=== PATIENT | male | born 1940 | race Caucasian/White ===

== ENCOUNTER 2018-09-12 14:29 | Emergency (ER) | payer MEDICARE, OTHER ==
[2018-09-12] MEDS ORDERED: LIDOCAINE 5% (700 MG) TRANSDERMAL ADH..PATCH TP ONE (15:25)
[2018-09-12] MEDS ORDERED: DEXAMETHASONE SOD PHOS INJ 10 MG/1 ML VIAL IM ONE (15:25)
[2018-09-12] MEDS ORDERED: KETOROLAC TROMETHAMINE 60 MG/2 ML SDV IM ONE (15:25)
--- NOTE | 2018-09-12 15:29 | ER Document Report ---
HPI - HPI Time Seen by Provider: 09/12/18 15:02 Pain Level: 5 Notes: Patient is a 78-year-old male with complaint of low back pain on the left side that extends down into the left hip. He states this is been ongoing for approximately 5 days. He states he sees an orthopedist for this. He states he is visiting the area as he has a grandchild being born and is having an acute flareup of his usual chronic pain. Patient denies any bowel or bladder incontinence, denies any saddle anesthesia, fevers or any other recent illness. Past Medical History - General Information source: Patient - Social History Smoking Status: Never Smoker Frequency of alcohol use: None Drug Abuse: None Family History: Reviewed & Not Pertinent - Medical History Medical History: Negative Surgical Hx: Negative - Immunizations Immunizations up to date: Yes Vertical Provider Document - CONSTITUTIONAL Notes: PHYSICAL EXAMINATION: GENERAL: Well-appearing, well-nourished and in no acute distress. HEAD: Atraumatic, normocephalic. EYES: Pupils equal round extraocular movements intact, conjunctiva are normal. ENT: Nares patent NECK: Normal range of motion LUNGS: No respiratory distress Musculoskeletal: Normal range of motion, tenderness to palpation to lumbar paraspinous muscles. No vertebral tenderness, step-off or deformity. NEUROLOGICAL: Normal speech, normal gait. PSYCH: Normal mood, normal affect. SKIN: Warm, Dry, normal turgor, no rashes or lesions noted. - INFECTION CONTROL TRAVEL OUTSIDE OF THE [place] IN LAST 30 DAYS: No Course - Re-evaluation Re-evalutation: Patient much improved after administration of medications here in the emergency department patient has no red flag symptoms such as bowel or bladder incontinence, urinary retention or saddle anesthesia. Patient will be a short course of pain medication. Patient given ED return precautions. - Vital Signs Vital signs: Temp Pulse Resp BP Pulse Ox 97.5 F 135 H 16 147/73 H 97 09/12/18 14:36 09/12/18 14:36 09/12/18 14:36 09/12/18 14:36 09/12/18 14:36 Discharge - Discharge Clinical Impression: Back pain Qualifiers: Back pain location: low back pain Chronicity: unspecified Back pain laterality: left Sciatica presence: with sciatica Sciatica laterality: sciatica of left side Qualified Code(s): M54.42 - Lumbago with sciatica, left side Condition: Stable Disposition: HOME, SELF-CARE Additional Instructions: You have been seen in the Emergency Department (ED) today for back pain. Your workup and exam have not shown any acute abnormalities and you are likely suffering from muscle strain or possible problems with your discs, but there is no treatment that will fix your symptoms at this time. Please take the hydrocodone that has been prescribed as directed. You should also purchase a local lidocaine cream such as "aspercreme with lidocaine" and use per bottle instructions to the affected area. Apply heat to the area as often as you are able. Continue to keep active and avoid prolonged periods of bed rest. Please follow up with your doctor as soon as possible regarding today's ED visit and your back pain. Return to the ED for worsening back pain, fever, weakness or numbness of either leg, or if you develop either (1) an inability to urinate or have bowel movements, or (2) loss of your ability to control your bathroom functions (if you start having "accidents"), or if you develop other new symptoms that concern you.concern you. Prescriptions: Hydrocodone Bit/Acetaminophen [Hydrocodon-Acetaminophen 5-325] 1 each PO Q4H #12 tablet
[2018-09-12 15:53] VITALS: BP 150/72
== END 2018-09-12 15:54 | disposition home or self-care (01) ==
LOC: ER 14:29
DX: M54.42 Lumbago with sciatica, left side (principal); M25.552 Pain in left hip; G89.29 Other chronic pain
CPT/HCPCS: 99283; 96372; J1885; J1100